=== PATIENT | male | born 1945 | race Caucasian/White ===

== ENCOUNTER 2018-12-16 19:42 | Emergency (ER) | payer MEDICARE ==
[~2018-12-16] VITALS: Ht 177.8 cm; Wt 105.2 kg
[2018-12-16] MEDS ORDERED: XARELTO20 MG PO (20:04)
[2018-12-16] MEDS ORDERED: CLOP75 PO (20:04)
[2018-12-16] MEDS ORDERED: GLIPIZIDE (20:05)
[2018-12-16] MEDS ORDERED: METF500 PO (20:05)
[2018-12-16] MEDS ORDERED: POTASSIUM (20:06)
[2018-12-16] MEDS ORDERED: ISOSORBIDE (20:07)
[2018-12-16] MEDS ORDERED: HCTZ (20:07)
[2018-12-16] MEDS ORDERED: ATORVASTATIN (20:08)
== END 2018-12-16 21:19 | disposition home or self-care (01) ==
LOC: ER 19:42
DX: S00.83XA Contusion of other part of head, initial encounter (principal); S80.212A Abrasion, left knee, initial encounter; S60.512A Abrasion of left hand, initial encounter; S60.511A Abrasion of right hand, initial encounter; E11.9 Type 2 diabetes mellitus without complications; I10 Essential (primary) hypertension; I48.91 Unspecified atrial fibrillation; Z79.899 Other long term (current) drug therapy; Z79.02 Long term (current) use of antithrombotics/antiplatelets; Z79.01 Long term (current) use of anticoagulants; Z79.84 Long term (current) use of oral hypoglycemic drugs; W01.10XA Fall on same level from slipping, tripping and stumbling with subsequent striking against unspecified object, initial encounter
CPT/HCPCS: 70450; 93005; 93010; 99284-25